=== PATIENT | female | born 1970 | race Caucasian/White ===

== ENCOUNTER 2024-10-10 18:28 | Emergency (ER) | payer OTHER ==
[2024-10-10] MEDS: Benzonatate 100 MG Cap PO STA (19:56)
[2024-10-10] MEDS: predniSONE 10 MG Tab PO ONE (20:26)
[2024-10-10] MEDS: Albuterol/Ipratropium 3.0-0.5 MG/3 ML Neb Soln NEB ONE (20:27)
== END 2024-10-10 22:10 | disposition home or self-care (01) ==
LOC: MW.ED 18:28
DX: J45.21 Mild intermittent asthma with (acute) exacerbation (principal); J06.9 Acute upper respiratory infection, unspecified; I10 Essential (primary) hypertension; Z79.899 Other long term (current) drug therapy; Z88.8 Allergy status to other drugs, medicaments and biological substances; E11.9 Type 2 diabetes mellitus without complications
CPT/HCPCS: 71046; 87428; 99285; A9270; J7620-GY